=== PATIENT | male | born 1960 | race Caucasian/White ===

== ENCOUNTER → 2017-12-23 | Emergency (ER) | payer MEDICAID ==
[~2017-12-23] VITALS: Ht 185.4 cm; Wt 89.0 kg
[~2017-12-23] MED LIST: ACET-814 PO; ASPI-1009 PO; CLOT45CR5 TOP; DOCU100C40 PO; FLO110IN IH; HYDR-2561 PO; HYDR-569 PO; LEVA15HF4 IH; LITH150C8 PO; OLAN10TA19 PO; ZIPR20CA2 PO
[2017-12-23 06:30] VITALS: BP 140/117
== END | disposition home or self-care (01) ==
LOC: ER 06:25
DX: B35.4 Tinea corporis (principal); F15.10 Other stimulant abuse, uncomplicated; Z86.14 Personal history of Methicillin resistant Staphylococcus aureus infection; Z88.0 Allergy status to penicillin; Z88.2 Allergy status to sulfonamides; Z88.8 Allergy status to other drugs, medicaments and biological substances; Z79.82 Long term (current) use of aspirin; Z79.899 Other long term (current) drug therapy
CPT/HCPCS: 99282

== ENCOUNTER 2019-03-29 14:17 | Emergency (ER) | payer MEDICAID ==
[~2019-03-29] VITALS: Ht 185.4 cm; Wt 114.0 kg
[~2019-03-29 14:17] MED LIST changes: +HYDR-4383 PO; -HYDR-569 PO
[2019-03-29 14:52] VITALS: BP 153/90
[2019-03-29] MEDS ORDERED: ibuprofen tablet 400 MG TABLET PO ONE (15:35)
[2019-03-29] MEDS ORDERED: HYDR-4383 PO (15:54)
== END 2019-03-29 16:19 | disposition home or self-care (01) ==
LOC: ER 14:17
DX: M79.641 Pain in right hand (principal); F41.9 Anxiety disorder, unspecified; F31.9 Bipolar disorder, unspecified; F15.90 Other stimulant use, unspecified, uncomplicated; Z86.14 Personal history of Methicillin resistant Staphylococcus aureus infection; Z86.19 Personal history of other infectious and parasitic diseases; Z98.890 Other specified postprocedural states; Z88.0 Allergy status to penicillin; Z88.2 Allergy status to sulfonamides; Z88.6 Allergy status to analgesic agent; Z88.1 Allergy status to other antibiotic agents; Z79.82 Long term (current) use of aspirin; Z79.899 Other long term (current) drug therapy; W22.8XXA Striking against or struck by other objects, initial encounter; Y93.89 Activity, other specified; Y92.89 Other specified places as the place of occurrence of the external cause; Y99.8 Other external cause status
CPT/HCPCS: 29125; 73130; 99283

== ENCOUNTER 2019-04-05 09:19 | Emergency (ER) | payer MEDICAID ==
[~2019-04-05] VITALS: Ht 185.4 cm; Wt 111.4 kg
[2019-04-05 09:26] VITALS: BP 111/84
[2019-04-05] MEDS ORDERED: HYDR-4383 PO (10:41)
== END 2019-04-05 11:09 | disposition home or self-care (01) ==
LOC: ER 09:19
DX: S62.339A Displaced fracture of neck of unspecified metacarpal bone, initial encounter for closed fracture (principal); F41.9 Anxiety disorder, unspecified; F31.9 Bipolar disorder, unspecified; Z98.890 Other specified postprocedural states; F15.90 Other stimulant use, unspecified, uncomplicated; Z76.0 Encounter for issue of repeat prescription; Z86.19 Personal history of other infectious and parasitic diseases; Z86.14 Personal history of Methicillin resistant Staphylococcus aureus infection; Z88.0 Allergy status to penicillin; Z88.2 Allergy status to sulfonamides; Z88.6 Allergy status to analgesic agent; Z88.1 Allergy status to other antibiotic agents; Z79.82 Long term (current) use of aspirin; Z79.899 Other long term (current) drug therapy; W22.8XXA Striking against or struck by other objects, initial encounter; Y93.71 Activity, boxing; Y92.89 Other specified places as the place of occurrence of the external cause; Y99.8 Other external cause status
CPT/HCPCS: 99283

== ENCOUNTER 2019-04-13 12:15 | Outpatient (CLI) | payer MEDICAID | END 2019-04-13 12:33 | disposition home or self-care (01) | LOC: ORTHO 12:15 | PROVIDERS: ATTEND Orthopaedic Surgery | DX: S62.334D Displaced fracture of neck of fourth metacarpal bone, right hand, subsequent encounter for fracture with routine healing (principal); X58.XXXD Exposure to other specified factors, subsequent encounter | CPT/HCPCS: 73130; G0463 ==